=== PATIENT | male | born 1965 | race Caucasian/White ===

== ENCOUNTER → 2017-01-03 | Day surgery (SDC) | payer OTHER ==
[~2017-01-03] MED LIST: IV RINGERS,LACTATED 1000ML 1,000 ML IV SCH; LIDOCAINE 1% 1 ML SYRINGE. ID PRN; LIDOCAINE 2% PF Vial for OR 5 ML VIAL. ONE; MIDAZOLAM HCL/PF 2 MG/2 ML VIAL. IV PRN; OMEP40CA5 PO; PROPOFOL 40 ML IV ONE; fentaNYL PF VIAL 100 MCG/2 ML VIAL IV PRN
[2017-01-03 10:05] VITALS: BP 165/90
--- NOTE | 2017-01-04 13:49 | PATHOLOGY ---
PATHOLOGY REPORT * * * * * * * * FINAL DIAGNOSIS: A. Small bowel biopsy: - No significant pathologic abnormalities. B. Gastric biopsy, antrum: - Consistent with mild reactive gastropathy. C. Esophageal biopsy, distal esophagus: - Segments of gastric mucosa showing congestion and mild superficial chronic inflammation. D. Terminal ileum biopsy: - No significant pathologic abnormalities. E. Colon biopsy, ascending colon polyp: - Tubular adenoma. F. Right colon biopsy: - Suggestive of microscopic (lymphocytic) colitis. G. Left colon biopsy: - Suggestive of microscopic (lymphocytic) colitis. H. Rectal biopsies: - No significant pathologic abnormalities. (JPM:dilip;01/04/2017) COMMENT: A. Sections of the small bowel biopsy reveal segments of duodenal mucosal. Where best oriented, the mucosal villi appear normal and show no sprue-like changes or significant inflammatory changes. There are focally prominent submucosal Zena's glands. B. Sections of the gastric antral biopsy reveal gastric antral mucosa showing congestion, focal mild foveolar hyperplasia, and no significant inflammation. An immunoperoxidase stain for Helicobacter is obtained. No Helicobacter organisms are identified. The findings are consistent with a mild reactive gastropathy. C. Sections of the distal esophageal biopsy reveal segments of gastric mucosa showing congestion and mild superficial chronic inflammation. There is no squamous esophageal mucosa. There is no evidence of Nascimento's change, dysplasia, or malignancy. D. Sections of the terminal ileum biopsy reveal segments of small intestine mucosa with focal mucosal-associated lymphoid tissue. There are no sprue-like changes or significant inflammatory changes. E. Sections of the ascending colon biopsy reveal a small tubular adenoma and an adjacent mucosal-associated lymphoid aggregate. F and G. Sections of the right colon and left colon biopsies appear similar and reveal segments of colonic mucosa showing mild chronic active inflammation without crypt architectural distortion or collagen deposition. There are increased intraepithelial lymphocytes. These changes are suggestive of microscopic (lymphocytic) colitis; however, the diagnosis requires clinicopathologic correlation. H. Sections of the rectal biopsy reveal segments of rectal mucosa showing no significant pathologic abnormalities. Special stain performed: Immunoperoxidase stain on B1. (JPM:dilip;01/04/2017) REPORT ELECTRONICALLY SIGNED BY: Juan Pablo Russell M.D. DATE/TIME: 01/04/2017 13:49 * * * * * * * * GROSS PATHOLOGY: A. Received in formalin labeled "Bonifacio Marx, small bowel," are three segments [address] soft tissue measuring 0.8 x 0.5 x 0.1 cm in aggregate dimensions and ranging from 0.2 to 0.5 cm in maximum dimension. The specimen is submitted entirely in cassette A1. B. Received in formalin labeled "Bonifacio Marx, gastric antrum," are two segments [address] soft tissue measuring 0.6 x 0.4 x 0.1 cm in aggregate dimensions and ranging from 0.5 to 0.6 cm in maximum dimension. The specimen is submitted entirely in cassette B1. C. Received in formalin labeled "Bonifacio Bruneria, distal esophagus," are three [address] soft tissue measuring 0.7 x 0.6 x 0.1 cm in aggregate dimensions and ranging from 0.3 to 0.4 cm in maximum dimension. The specimen is submitted entirely in cassette C1. D. Received in formalin labeled "Bonifacio Marx, terminal ileum," is a segment of st soft tissue measuring 0.6 cm in maximum dimension. The specimen is submitted entirely in cassette D1. E. Received in formalin labeled "Bonifacio Marx, ascending colon polyp," is a segment of st soft tissue measuring 0.4 cm in maximum dimension. The specimen is submitted entirely in cassette E1. F. Received in formalin labeled "Bonifacio Bruneria, R colon," are [address] soft tissue measuring 1.0 x 0.7 x 0.1 cm in aggregate dimensions and ranging from 0.3 to 0.7 cm in maximum dimension. The specimen is submitted entirely in cassette F1. G. Received in formalin labeled "Bonifacio Marx, L colon," are three [address] soft tissue measuring 0.6 x 0.6 x 0.1 cm in aggregate dimensions and ranging from 0.3 to 0.5 cm in maximum dimension. The specimen is submitted entirely in cassette G1. H. Received in formalin labeled "Bonifacio Bruneria, rectal," are two segments [address] soft tissue measuring 0.6 x 0.5 x 0.1 cm in aggregate dimensions and ranging from 0.3 to 0.6 cm in maximum dimension. The specimen is submitted entirely in cassette H1. (CAA; 01/03/2017) INITIAL CPT CODE(S): A; 35330 B; 51546, 15237 C; 21846 D; 97532 E; 83090 F; 67550 G; 21623 H; 90513 Professional services performed [place] [facility] [place] [address] Technical services performed by [facility] at [address] [place] [address], [address], [place] [address]. SPECIMEN(S) RECEIVED: A.Small bowel B.Gastric antrum C.Distal esophagus D.Terminal ileum E.Ascending colon polyp F.Right colon G.Left colon H.Rectum CLINICAL HISTORY: Colon polyps, gastric ulcers PATIENT: BONIFACIO MARX /AGE: 903/11/1965 (Age: 51) PATIENT #: [id number] ALT CASE #: SPECIMEN COLLECTION DATE: 01/03/2017 SPECIMEN RECEIVED DATE: 01/03/2017 [facility] - [id number] [address] - PHONE: [phone] * * * END OF REPORT * * *
== END | disposition home or self-care (01) ==
LOC: SURG 08:20
PROVIDERS: ATTEND Internal Medicine Gastroenterology
DX: Z09 Encounter for follow-up examination after completed treatment for conditions other than malignant neoplasm (principal); Z86.010 Personal history of colon polyps; D12.2 Benign neoplasm of ascending colon; K64.0 First degree hemorrhoids; K63.89 Other specified diseases of intestine; K21.0 Gastro-esophageal reflux disease with esophagitis; K31.89 Other diseases of stomach and duodenum; Z72.0 Tobacco use; Z72.89 Other problems related to lifestyle
CPT/HCPCS: 43239; 45380; 88305; 88342; J2704; J2001